=== PATIENT | female | born 1950 | race Caucasian/White ===

== ENCOUNTER 2021-12-24 08:37 | Outpatient (CLI) | payer MEDICARE, BC | END 2021-12-24 08:38 | disposition home or self-care (01) | LOC: CSHMAMMO 08:37 | PROVIDERS: ATTEND Family Medicine | DX: Z12.31 Encounter for screening mammogram for malignant neoplasm of breast (principal); Z80.3 Family history of malignant neoplasm of breast | CPT/HCPCS: 77063; 77067 ==

== ENCOUNTER 2022-06-15 10:33 | Outpatient (CLI) | payer MEDICARE, BC | END 2022-06-15 10:34 | disposition home or self-care (01) | LOC: CSHMAMMO 10:33 | PROVIDERS: ATTEND Family Medicine | DX: Z13.820 Encounter for screening for osteoporosis (principal); Z78.0 Asymptomatic menopausal state; M85.851 Other specified disorders of bone density and structure, right thigh; M85.852 Other specified disorders of bone density and structure, left thigh | CPT/HCPCS: 77080 ==

== ENCOUNTER 2023-01-07 09:06 | Outpatient (CLI) | payer MEDICARE, BC | END 2023-01-07 09:07 | disposition home or self-care (01) | LOC: CSHMAMMO 09:06 | PROVIDERS: ATTEND Family Medicine | DX: Z12.31 Encounter for screening mammogram for malignant neoplasm of breast (principal); Z80.3 Family history of malignant neoplasm of breast | CPT/HCPCS: 77063; 77067 ==

== ENCOUNTER 2024-01-10 08:13 | Outpatient (CLI) | payer MEDICARE, BC | END 2024-01-10 08:14 | disposition home or self-care (01) | LOC: CSHMAMMO 08:13 | PROVIDERS: ATTEND Family Medicine | DX: Z12.31 Encounter for screening mammogram for malignant neoplasm of breast (principal); Z80.3 Family history of malignant neoplasm of breast | CPT/HCPCS: 77063; 77067 ==

== ENCOUNTER 2024-06-14 07:57 | Outpatient (CLI) | payer MEDICARE, BC | END 2024-06-14 07:58 | disposition home or self-care (01) | LOC: CSHMAMMO 07:57 | PROVIDERS: ATTEND Family Medicine | DX: Z13.820 Encounter for screening for osteoporosis (principal); Z78.0 Asymptomatic menopausal state; M85.89 Other specified disorders of bone density and structure, multiple sites | CPT/HCPCS: 77080 ==